=== PATIENT | male | born 1980 | race Caucasian/White ===

== ENCOUNTER 2019-03-12 02:30 | Emergency (ER) | payer MEDICAID ==
[~2019-03-12] VITALS: Ht 182.9 cm; Wt 93.0 kg
[2019-03-12 02:32] VITALS: BP 131/81
--- NOTE | 2019-03-12 02:38 | NUR ---
PATIENT IN BED [address], [place] EMT AT BEDSIDE SITTER.
--- NOTE | 2019-03-12 02:44 | NUR ---
0243 TELEPSYCH REQUEST INITIATED
[2019-03-12 02:48] LABS: APPEARANCE,URINE CLEAR (CLEAR); BILIRUBIN,URINE NEGATIVE (NEGATIVE); BLOOD, URINE NEGATIVE (NEGATIVE); COLOR,URINE YELLOW (YELLOW); LEUKOCYTE ESTERASE ,URINE NEGATIVE (NEGATIVE); NITRITE, URINE NEGATIVE (NEGATIVE); UGLUCOSE NEGATIVE (NEGATIVE)
[2019-03-12 02:57] LABS: BARBITURATE, URINE NEG. ng/ml (NEG <=200); BENZODIAZEPINE, URINE NEG. ng/mL (NEG <=200); CANNABINOID, URINE NEG. ng/mL (NEG <=50); COCAINE, URINE NEG. ng/mL (NEG <=300); OPIATE, URINE NEG. ng/mL (NEG <=2000); PHENCYCLIDINE SCREEN,URINE NEG. ng/mL (NEG <=25)
--- NOTE | 2019-03-12 02:58 | NUR ---
38 Y/O MALE BIBA. PRESENTS TO ED, C/O SUICIDAL IDEATION. PER [employer] SUPERVISOR, EMS WAS DISPATCHED TO PT'S HOME. STATES PT WAS FOUND ON THE FLOOR UNCONSCIOUS BEFORE CALLING EMS. PT ENDORSED WANTING TO GO TO [place] AND [place], PER . PT IS GUARDED ABOUT ANY SUICIDAL IDEATION DURING ASSESSMENT. NO HX OF PSYCHIATRIC DISORDERS. PT STATES FEELING DEPRESSED DUE TO PROBLEMS WITH . PT DENIES ANY DRUG OR ALCOHOL USE. PT VSS. ERMD AWARE. WILL CONTINUE TO MONITOR.
[2019-03-12 03:00] LABS: ANION GAP 13.4 (8-16); CARBON DIOXIDE 28.4 mmol/L (21-32); CHLORIDE 104 mmol/L (98-107); CREATININE 1.1 mg/dL (0.7-1.3); GFR ARICAN-AMERICAN 97 mL/min (>90); GLUCOSE 119 mg/dL (74-106); POTASSIUM 3.8 mmol/L (3.5-5.1); SODIUM SERUM 142 mmol/L (136-145); UREA NITROGEN, BLOOD 13 mg/dL (7-18)
[2019-03-12 03:05] LABS: ACETAMINOPHEN < 0.5 ug/ml (10-30); ALBUMIN 4.6 g/dL (3.4-5.0); ASPARTATE AMINOTRANSFERASE 30 U/L (15-37); SALICYLATE < 2.8 mg/dL (2.8-20.0); TOTAL BILIRUBIN 0.8 mg/dL (0.0-1.0)
--- NOTE | 2019-03-12 03:06 | NUR ---
EKG PERFORMED AT BEDSIDE
--- NOTE | 2019-03-12 03:09 | NUR ---
XR AT BEDSIDE.
[2019-03-12 03:34] LABS: BASOPHILS # (AUTO) 0.1 K/uL (0.00-0.22); BASOPHILS % (AUTO) 0.8 % (0.0-2.0); EOSINOPHILS # (AUTO) 0.3 K/uL (0-0.4); EOSINOPHILS % (AUTO) 2.3 % (0.0-4.0); HEMATOCRIT 47.9 % (36-52); HEMOGLOBIN 16.1 g/dL (12.0-18.0); LYMPHOCYTES # (AUTO) 2.9 K/uL (2.0-11.5); LYMPHOCYTES % (AUTO) 26.3 % (20.5-51.1); MEAN CORPUSCULAR HEMOGLOBIN 30 pg (27-31); MEAN CORPUSCULAR HGB CONC 34 g/dL (33-37); MEAN CORPUSCULAR VOLUME 89.6 fL (80-94); MONOCYTES # (AUTO) 0.8 K/uL (0.8-1.0); MONOCYTES % (AUTO) 6.8 % (1.7-9.3); NEUTROPHILS # (AUTO) 7.1 K/uL (1.8-7.7); NEUTROPHILS % (AUTO) 63.8 % (42.2-75.2); PLATELET COUNT (AUTO) 343 K/uL (140-450); RED BLOOD CELL COUNT(AUTO) 5.34 MIL/uL (4.20-6.10); RED CELL DISTRIBUTION WIDTH 12.8 % (11.6-13.7); WHITE BLOOD COUNT (AUTO) 11.1 K/uL (4.8-10.8)
[2019-03-12 04:40] VITALS: BP 131/81
--- NOTE | 2019-03-12 04:40 | NUR ---
PT DISCHARGED WITH PAPERWORK. EDUCATED PT REGARDING D/C DIAGNOSIS AND INSTRUCTIONS. PT VERBALIZED UNDERSTANDING. PT DENIES ANY SI. PT STABLE CONDITION. ALL QUESTIONS ANSWERED.
== END 2019-03-12 04:40 | disposition home or self-care (01) ==
LOC: MED 02:30
DX: R55 Syncope and collapse (principal); F43.20 Adjustment disorder, unspecified
CPT/HCPCS: 36415; 71045; 80053; 80305; 81003; 84484; 85025; 93005; 99284; G0480; G0482; Q0092